=== PATIENT | female | born 1970 | race American Indian/Alaskan Native ===

== ENCOUNTER 2021-02-20 06:56 | Day surgery (SDC) | payer BC, OTHER ==
[~2021-02-20 06:56] MED LIST: Lactated Ringers 1,000 ML IV SCH; Sodium Chloride 0.9% 10 ML Syringe FLUSH PRN; Sodium Chloride 0.9% 2.5 ML Syringe FLUSH PRN; Sodium Chloride 0.9% 20 ML SDV IV PRN
--- NOTE | 2021-02-20 08:16 | PCM.PREANE ---
Preanesthetic Assessment - Anesthesia/Transfusion/Family Hx Anesthesia History: Prior Anesthesia Without Reaction Transfusion History: No Prior Transfusion(s) - Review of Systems General: No Symptoms Pulmonary: No Symptoms Cardiovascular: No Symptoms Gastrointestinal: No Symptoms Neurological: No Symptoms Other: Reports: None - Physical Assessment NPO Status Date: 02/20/21 NPO Status Time: 00:00 Height: 5 ft 6 in Weight: 297 lb ASA Class: 3 Mental Status: Alert & Oriented x3 Airway Class: Mallampati = 3 Dentition: Reports: Normal Dentition Thyro-Mental Finger Breadths: 3 Mouth Opening Finger Breadths: 2 ROM/Head Extension: Full Lungs: Clear to Auscultation, Normal Respiratory Effort Cardiovascular: Regular Rate, Regular Rhythm - Lab Values: Laboratory Last Values SARS-CoV-2 RNA (ANDRES) NEGATIVE (NEGATIVE) 02/20/21 07:10 - Allergies Allergies/Adverse Reactions: Allergies Allergy/AdvReac Type Severity Reaction Status Date / Time Sulfa (Sulfonamide Allergy Hives Verified 02/14/21 10:40 Antibiotics) sulfamethoxazole Allergy Hives Verified 02/14/21 10:40 [From Decra] trimethoprim [From ] Allergy Hives Verified 02/14/21 10:40 - Acknowledgements Anesthesia Type Planned: General Anesthesia Pt an Appropriate Candidate for the Planned Anesthesia: Yes Alternatives and Risks of Anesthesia Discussed w Pt/Guardian: Yes Pt/Guardian Understands and Agrees with Anesthesia Plan: Yes PreAnesthesia Questionnaire HEENT History: Reports: Other (See Below) Other HEENT History: wears glasses Cardiovascular History: Reports: High Cholesterol, Hypertension Respiratory History: Reports: None Gastrointestinal History: Reports: None Genitourinary History: Reports: None 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: Musculoskeletal History: Reports: Fracture Other Musculoskeletal History: hx fx left ankle, left wrist and fx nose Neurological History: Reports: Migraines Psychiatric History: Reports: None Endocrine/Metabolic History: Reports: Diabetes, Type II, Obesity/BMI 30+ Hematologic History: Reports: Anemia Immunologic History: Reports: None Oncologic (Cancer) History: Reports: None Dermatologic History: Reports: None - Past Surgical History Head Surgeries/Procedures: Reports: None HEENT Surgical History: Reports: None Cardiovascular Surgical History: Reports: None Respiratory Surgical History: Reports: None GI Surgical History: Reports: Cholecystectomy, Hernia, Abdominal, Other (See Below) Other GI Surgeries/Procedures: ventral hernia repair Female Surgical History: Reports: Section Endocrine Surgical History: Reports: None Neurological Surgical History: Reports: None Musculoskeletal Surgical History: Reports: None Oncologic Surgical History: Reports: None Dermatological Surgical History: Reports: None - SUBSTANCE USE Tobacco Use Status *Q: Former Tobacco User Tobacco Use Within Last Twelve Months: No - HOME MEDS Home Medications: Home Meds Alogliptin Benzoate [Alogliptin] 25 mg PO DAILY 02/14/21 [History] Aspirin [Adult Aspirin Regimen] 81 mg PO DAILY 02/14/21 [History] Docusate Sodium 100 mg PO BID PRN 02/14/21 [History] Insulin Detemir [Levemir] 40 units SUBCUT BIDMEALS 02/14/21 [History] [place]ouster-3/DHA/Epa/Fish Oil [Fish Oil 1,000 mg Softgel] 1,000 mg PO BID 02/14/21 [History] atorvaSTATin Calcium [Atorvastatin Calcium] 20 mg PO DAILY 02/14/21 [History] bisacodyL [Bisacodyl] 5 mg PO BID 02/14/21 [History] glipiZIDE [Glipizide Xl] 10 mg PO BID 02/14/21 [History] lisinopriL [Lisinopril] 20 mg PO DAILY 02/14/21 [History] - CURRENT (IN HOUSE) MEDS Current Meds: Current Medications Lactated Ringer's (Ringers, Lactated) 1,000 mls @ 125 mls/hr IV ASDIRECTED AGA Sodium Chloride (Sodium Chloride 0.9% 10 Ml Syringe) 10 ml FLUSH ASDIRECTED PRN PRN Reason: Keep Vein Open Sodium Chloride (Sodium Chloride 0.9% 2.5 Ml Syringe) 2.5 ml FLUSH ASDIRECTED PRN PRN Reason: Keep Vein Open Sodium Chloride (Sodium Chloride 0.9% 10 Ml Syringe) 10 ml FLUSH ASDIRECTED PRN PRN Reason: Keep Vein Open Sodium Chloride (Sodium Chloride 0.9% 2.5 Ml Syringe) 2.5 ml FLUSH ASDIRECTED PRN PRN Reason: Keep Vein Open Sodium Chloride (Sodium Chloride 0.9% 20 Ml Sdv) 10 ml IV ASDIRECTED PRN PRN Reason: IV Use
[2021-02-20] MEDS ORDERED: Propofol 200 MG/20 ML SDV ONE ×3 (09:17→11:01)
[2021-02-20] MEDS ORDERED: fentaNYL 100 MCG/2 ML SDV ONE (09:24)
[2021-02-20] MEDS ORDERED: Lidocaine 2% 5 ML SDV ONE (09:25)
[2021-02-20] MEDS ORDERED: Benzocaine 20% Topical Spray UD ONE (09:29)
[2021-02-20] MEDS ORDERED: ePHEDrine 50 MG/ML SDV ONE (10:05)
--- NOTE | 2021-02-20 11:18 | PCM.POSTAN ---
POST ANESTHESIA ASSESSMENT - MENTAL STATUS Mental Status: Alert, Oriented - VITAL SIGNS Vital Signs: Last Vital Signs Temp 36.8 C 02/20/21 11:09 Pulse 76 02/20/21 11:15 Resp 11 L 02/20/21 11:15 BP 124/96 H 02/20/21 11:15 Pulse Ox 96 02/20/21 11:15 - RESPIRATORY Respiratory Status: Respiratory Rate WNL, Airway Patent, O2 Saturation Stable - CARDIOVASCULAR CV Status: Pulse Rate WNL, Blood Pressure Stable - GASTROINTESTINAL GI Status: No Symptoms - POST OP HYDRATION Hydration Status: Adequate & Stable
--- NOTE | 2021-02-20 11:21 | PCM48HPAN ---
Post Anesthesia Note - EVALUATION WITHIN 48HRS OF ANESTHETIC Vital Signs in Normal Range: Yes Patient Participated in Evaluation: Yes Respiratory Function Stable: Yes Airway Patent: Yes Cardiovascular Function Stable: Yes Hydration Status Stable: Yes Pain Control Satisfactory: Yes Nausea and Vomiting Control Satisfactory: Yes Mental Status Recovered: Yes Vital Signs: Last Vital Signs Temp 36.8 C 02/20/21 11:09 Pulse 76 02/20/21 11:15 Resp 11 L 02/20/21 11:15 BP 124/96 H 02/20/21 11:15 Pulse Ox 96 02/20/21 11:15
--- NOTE | 2021-02-20 14:52 | PCM.OPNOTE ---
- General Post-Op/Procedure Note Date of Surgery/Procedure: 02/20/21 Operative Procedure(s): Diagnostic egd and colonoscopy Findings: cecal mass, 2 polyps in transverse colon, normal appearing EGD Pre Op Diagnosis: Iron deficiency anemia Post-Op Diagnosis: Cecal mass, transverse colon polyp x 2 Anesthesia Technique: MAC Primary Surgeon: Ludy Mitchell Condition: Good Free Text/Narrative:: Intake & Output 02/19/21 02/20/21 02/20/21 22:59 06:59 14:59 Intake Total 1500 Balance 1500
--- NOTE | 2021-02-21 10:59 | OR ---
SURGEON: LUDY IMTCHELL MD DATE OF PROCEDURE: 02/20/2021 PREOPERATIVE DIAGNOSIS: Iron deficiency anemia. POSTOPERATIVE DIAGNOSES: 1. Transverse colon polyp x2. 2. Cecal mass. PROCEDURE PERFORMED: Diagnostic esophagogastroduodenoscopy and colonoscopy. ENDOSCOPIST: Ludy Mitchell MD ANESTHESIA: general INSTRUMENT USED: Olympus endoscope and colonoscope. EXTENT OF EXAM: Second portion of the duodenum, to the cecum. PREPARATION: Good. LIMITATIONS: None. INDICATIONS FOR EXAMINATION: The patient is a 50-year-old female with morbid obesity, a recurrent ventral hernia, uncontrolled type 2 diabetes who presents with iron-deficiency anemia. The patient and I discussed the need for diagnostic EGD and colonoscopy. I explained the procedure, expected perioperative course, and the risks. She verbalized understanding and wishes to proceed. PROCEDURE IN DETAIL: The patient was brought into the endoscopy suite and placed in the left lateral decubitus position. A time-out was completed verifying the patient's name, age, date of , allergies, and procedure to be performed. General anesthetic was induced and continuous oxygen was provided via face mask throughout the procedure. After adequate sedation was achieved, a well-lubricated colonoscope was placed through the patient's bite block into the back of the throat and advanced under direct visualization to the second portion of duodenum. This appeared normal and photograph was taken. The scope was then fully withdrawn while examining the color, texture, anatomy, and integrity of the mucosa of the upper GI tract. The duodenum appeared normal. The scope was brought into the stomach and a photograph taken of the pylorus and GE junction. Both appeared anatomically normal. Biopsies were taken of the gastric antrum, body, and fundus and sent for histologic review and H pylori testing. The scope was then brought into the distal esophagus. Photograph was taken of a normal-appearing Z- line. The distal esophagus had no evidence of esophagitis or ulceration. A biopsy was taken 1 cm above the Z-line and sent to pathology for histologic review. The remainder of the esophagus was normal appearing. The scope was removed and this portion of the procedure was terminated. A digital rectal exam was performed. This exam was within normal limits. A well-lubricated colonoscope was inserted per rectum and advanced under direct visualization to the level of the cecum. The cecum was identified by both visual and anatomic landmarks. A photograph was taken to the cecal cap. Due to looping of the scope more proximally, I was unable to retroflex the scope within the cecum. The scope was then fully withdrawn while examining the color, texture, anatomy, and integrity of the mucosa from the cecum to the anal canal. The patient was noted to have a large irregular-appearing mass which was located across from the terminal ileum. This was too large for me to resect endoscopically. Biopsies were taken and sent to pathology labeled as cecal mass. The area was then inked for identification in the future. In the proximal transverse colon near the hepatic flexure, the patient was noted to have 2 pedunculated polyps. These were both removed using a hot snare and sent to pathology labeled as transverse colon polyp #1 and 2. The remainder of the colon appeared normal. The scope was brought into the rectum and I attempted to retroflex the scope within the rectum; however, I had difficulty keeping the patient insufflated. Because of this, I was unable to retroflex the scope safely. The scope was fully withdrawn while closely examining the rectal mucosa as well as the anal canal. No abnormalities were noted. The scope was removed and the procedure terminated. The cecum to anus time was 29 minutes. The patient tolerated the procedure well and was transferred to the PACU in stable condition. ENDOSCOPIC DIAGNOSIS: Cecal mass, transverse colon polyp x2. RECOMMENDATIONS: I visited with the patient and her in the postoperative area. I showed her pictures of the cecal mass that I found. We will obtain pathology results and determine what the next steps in her treatment are. AURELIO CRAFT /[id number] [place]
== END 2021-02-20 11:42 | disposition home or self-care (01) ==
LOC: MW.SDS 06:56
PROVIDERS: ATTEND Surgery
DX: D12.0 Benign neoplasm of cecum (principal); D12.3 Benign neoplasm of transverse colon; D50.9 Iron deficiency anemia, unspecified; E66.01 Morbid (severe) obesity due to excess calories; I10 Essential (primary) hypertension; E78.00 Pure hypercholesterolemia, unspecified; E11.9 Type 2 diabetes mellitus without complications; K43.9 Ventral hernia without obstruction or gangrene; Z88.2 Allergy status to sulfonamides; Z88.8 Allergy status to other drugs, medicaments and biological substances; Z79.899 Other long term (current) drug therapy; Z79.82 Long term (current) use of aspirin; Z79.84 Long term (current) use of oral hypoglycemic drugs; Z79.4 Long term (current) use of insulin; Z90.49 Acquired absence of other specified parts of digestive tract; Z98.890 Other specified postprocedural states; Z87.891 Personal history of nicotine dependence; Z68.42 Body mass index [BMI] 45.0-49.9, adult; Z01.812 Encounter for preprocedural laboratory examination; Z20.822 Contact with and (suspected) exposure to COVID-19
CPT/HCPCS: 43239; 45380; 45381; 45385; 87635; A9270; J2704; J3010; J7120; 00813; U0002